=== PATIENT | male | born 1995 | race Caucasian/White ===

== ENCOUNTER 2021-05-12 11:15 | Observation (INO) | payer SELFPAY ==
[2021-05-12] VITALS (23 sets, daily range): BP systolic 114–147; BP diastolic 52–89; PULSE 76–98; RESP 12–89; TEMP 36.4–38; O2SAT 94–100; BMI 20.9; BMI 20.7
--- NOTE | 2021-05-12 11:28 | XR_ITS ---
PROCEDURE: XR KNEE RT 3V CLINICAL INDICATION: nail in knee COMPARISON: No exams were available for comparison FINDINGS: There is a foreign body consistent with a nail in the medial soft tissues of the knee overlying medial femoral condyle region, without definitive bony involvement. Small joint effusion. No acute fracture or dislocation. IMPRESSION: Foreign body consistent with a nail in medial soft tissues of the knee without definitive bony involvement. Small joint effusion. Dictated by: Jaskaran Larson MD 05/12/2021 12:27 Jaskaran Larson MD in [place] 05/12/2021 12:27
--- NOTE | 2021-05-12 11:44 | HMH.EDGENADL ---
ED Disposition Clinical Impression: Foreign body of knee Qualifiers: Encounter type: initial encounter Laterality: right Qualified Code(s): S80.251A - Superficial foreign body, right knee, initial encounter Disposition: Still a Patient Condition on Discharge: Fair - Critical Care Critical Care Time: No Attestation: On 05/12/21, the high probability of a clinically significant, sudden or life threatening deterioration of the following system(s) required my full and direct attention, intervention and personal management. The time I documented below is in addition to time spent performing reported procedures but includes the following listed in this critical care notation. Medical Decision Making - Medical Records Medical records reviewed: Yes: I reviewed the patient's medical records. - Severiano Inquiry Pt receiving controlled substance: No Vital Signs: 05/12/21 11:16 Temperature 98.4 F Temperature Source Oral Pulse Rate [Right Radial] 89 Respiratory Rate 18 Blood Pressure [Right Arm] 129/79 Blood Pressure Mean [Right Arm] 95 Blood Pressure Source [Right Arm] Automatic Cuff Blood Pressure Position [Right Arm] Sitting 02 Sat by Pulse Oximetry 99 Oxygen Delivery Method Room Air Orders (Tests/Meds): ED MEDICATIONS Discontinued Medications Generic Name Dose Route Start Last Admin Trade Name Freq PRN Reason Stop Dose Admin Tetanus/Reduced Diphtheria/Acell Pertussis 0.5 ml 05/12/21 11:29 Tet/Diphth/Pert-Adult 0.5ml Syringe IM 05/12/21 11:30 .ONCE ONE ORDERS Category Date Time Status Knee XR right 3 views [XR knee RT 3V] Stat Exams 05/12/21 11:28 Taken - Radiology Data #1 Image(s): Knee Image Reviewed: Yes I reviewed the patient's radiology image Nail right knee, no clear fracture Medical Decision Narrative: X-rays show nail right knee. Discussed this case with Dr. Lima, on-call for Ortho who will take the patient for washout and further management. General Adult HPI - General Chief complaint: Skin/Abscess/Foreign Body Stated complaint: ao @ 1040 nail in Rt knee Time Seen by Provider: 05/12/21 11:30 Mode of Arrival: Wheelchair Limitations: No Limitations Description of Symptoms (Recalled from ER Triage Doc. by RN): pt presents to ED with a nail in his R knee. Pt reports he was using a nail gun to nail boards together. The head of nail is flush with the knee in R knee. The head of the nail is just above R patella area. No bleeding noted. Pulses positive and equal, pt denies numbness, tingling or decreased sensation. - History of Present Illness HPI narrative: This is a 25-year-old male with no significant past medical history who presents to the emergency department for evaluation of injury to the right knee that occurred just prior to arrival. He was using a nail helper driver when he accidentally placed a nail behind the patella of the right knee. Tetanus not up-to-date. Pain worse with movement. - Related Data Allergies Allergy/AdvReac Type Severity Reaction Status Date / Time No Known Allergies Allergy Verified 05/12/21 11:43 [facility] History - Hepatitis A Screen Drug use history?: No High risk sexual behaviors?: No History of sexually transmitted infection?: No Currently employed?: No Childcare worker?: No Do you have indoor plumbing?: Yes Do you have electricity?: Yes Attestation statement:: This patient has been screened for Hepatitis A risk factors. I have reviewed the patient's past medical history: Yes (Noncontributory) ROS Obtained: Yes All systems reviewed & no additional complaints Physical Exam - General General appearance: alert, in no apparent distress - Head Head exam: atraumatic, normocephalic - Neck Neck exam: Present: normal inspection, full ROM, trachea midline - Respiratory Respiratory exam: Absent: respiratory distress - Cardiovascular Cardiovascular exam: Present: regular rate - Expanded Lower Extremity Exam
--- NOTE | 2021-05-12 12:01 | PC.NURSE ---
BARBY JANSEN speaking with Dr. Clarence wilson enterprise solutions architect
--- NOTE | 2021-05-12 12:20 | HMH.ORTHHP ---
*Admission Date: 05/12/21 *Reason for consult:: Right knee traumatic arthrotomy with nail lodged in distal femur *History of present illness: The patient is a 25-year-old male who was working today and accidentally drove a nail into his right knee. He complains only of right knee pain. He denies any numbness or tingling he has no other current complaints. He states that he last ate at 9:30 AM. [facility] History *Have you ever received a pneumonia vaccine?: No *Have you received a flu vaccine this season?: No - *Social History Smoking Status: Never smoker Alcohol Intake: never *Occupational Status:: other *Travel in the last 8 weeks: None Family Hx:: No significant family history Review of Systems - Review of Systems Review of systems:: pertinent systems reviewed and negative unless documented below Meds Allergies Allergy/AdvReac Type Severity Reaction Status Date / Time No Known Allergies Allergy Verified 05/12/21 11:43 Exam Vital signs and Labs for Last 24 Hours: Temp Pulse Resp BP Pulse Ox 98.4 F 89 19 125/75 100 05/12/21 12:18 05/12/21 12:18 05/12/21 12:18 05/12/21 12:18 05/12/21 12:18 I & O for Last 24 hours: Intake & Output 05/09/21 05/10/21 05/11/21 05/12/21 23:59 23:59 23:59 23:59 Weight 150 lb - Constitutional no acute distress - *Routine HEENT Exam Head: Present: normocephalic Eye: Present: EOMI, PERRL ENT: Present: mucous membranes moist - *Routine Neck Exam Present: supple. Absent: lymphadenopathy - *Routine Respiratory Exam Present: CTA bilaterally - *Routine Cardiovascular Exam Present: RRR - *Routine Abdominal Exam Present: soft, normoactive bowel sounds. Absent: tenderness - *Routine Rectal Exam Rectal:: deferred - *Routine Genitalia Exam Genitalia:: deferred - *Routine Extremities Exam Absent: cyanosis, clubbing, edema - *Routine Skin Exam Present: warm. Absent: rash - *Routine Neurological Exam Present: alert, oriented X3 - Detailed Lower Extremity Exam Comments: Examination of the right knee reveals no obvious deformity. The head of the nail is easily visible on the superior lateral aspect of the knee, just above the patella. Range of motion was not tested secondary to pain. The patient is able to do a straight leg raise. The patient is completely neurovascularly intact distally. Results - Labs Labs: All other labs normal. - Diagnostic results Knee x-ray: image reviewed (X-rays of the right knee were obtained and reviewed. There is a long nail in the knee joint and potentially lodged in the distal femur.) Assessment and Plan (1) Foreign body of knee Status: Acute Qualifiers: Encounter type: initial encounter Laterality: right Qualified Code(s): S80.251A - Superficial foreign body, right knee, initial encounter Category: Medical Code(s): S80.259A - Superficial foreign body, unspecified knee, initial encounter The patient has a traumatic arthrotomy, and technically an open distal femur fracture if this is lodged in the femur. The plan will be to take the patient to the operating room for foreign body removal, open irrigation debridement of the wound tract, and arthroscopic irrigation debridement of the right knee joint.
--- NOTE | 2021-05-12 12:55 | P.PN_ITS ---
[facility] Anesthesia Checklist - Patient Identification Patient Identification: Arm Band - Structural Data Admitted From: Home Planned Operative Procedure/s: Removal of nail with washout and knee arthroscopy Consent for Planned Operative Procedure(s) Verified: Yes - NPO Status Verified Time NPO: 09:30 (Full breakfast) - Airway Assessment C-Spine Mobility Assessed: Yes TMJ Mobility Assessed: Yes Dentition: Good Dentition - Neurological Assessment Level of Consciousness: Awake Hx Seizures: No Numbness or tingling in extremities: No - Anesthesia Plan Anesthesia Risk discussed: Yes Anesthesia Plan: Verified ASA Class: I Anesthesia Type: General [facility] History I have reviewed the patient's past medical history: Yes *Have you ever received a pneumonia vaccine?: No *Have you received a flu vaccine this season?: No Anesthesia experience/problems:: None - *Social History Smoking Status: Never smoker Alcohol Intake: never Substance Use Type: denies use *Occupational Status:: other *Travel in the last 8 weeks: None Family Hx:: No significant family history
[2021-05-12 13:23] LABS: Basophils % 0.3 % (0.1-2.0); Chloride 101 mmol/L (98-107); Eosinophils # 0.3 K/mm3 (0.0-0.4); Eosinophils % 2.6 % (0.1-12.0); Hemoglobin 14.6 g/dL (14.1-18.0); Lymphocytes # 1.3 K/mm3 (0.7-4.5); Lymphocytes % 13.1 % (10-50); Mean Corpuscular HGB Conc 34.7 g/dL (31.8-35.4); Mean Corpuscular Hemoglobin 28.8 pg (27.0-31.2); Mean Corpuscular Volume 83.1 fl (80-94); Mean Platelet Volume 8.9 fl (7.4-10.4); Monocytes # 0.4 K/mm3 (0.1-1.0); Neutrophils # 7.7 K/mm3 (1.8-7.8); Platelet Count 174 K/mm3 (142-424); Red Blood Count 5.05 M/mm3 (4.60-6.20); Red Cell Distribution Width 12.7 % (11.5-17.5); Sodium 137 mmol/L (136-145); White Blood Count 9.6 K/mm3 (4.8-10.8)
[2021-05-12 13:24] LABS: Potassium 3.8 mmoL/L (3.5-5.1)
[2021-05-12 13:26] LABS: Blood Urea Nitrogen 16 mg/dl (9-20); Creatinine Clearance Estimated 137 mL/min (50-200); Estimated Glomerular Filt Rate 119 ml/min (>60); GFR (African American) 144 ML/MIN (>60)
[2021-05-12 13:27] LABS: Anion Gap 14.8 mEq/L (5-15); Calcium 9.1 mg/dl (8.4-10.2); Carbon Dioxide 25 mmol/L (22.0-30.0); Glucose 93 mg/dl (74-100)
--- NOTE | 2021-05-12 15:23 | PC.NURSE ---
pt resting in bed.
--- NOTE | 2021-05-12 16:50 | PC.NURSE ---
DR. Lima from OR at
--- NOTE | 2021-05-12 18:33 | HMH.OPNOTE ---
Date of procedure: 05/12/21 Pre-op Diagnosis:: Right knee traumatic arthrotomy with foreign body Post-op Diagnosis:: Right knee traumatic arthrotomy with foreign body Procedure performed:: Right knee removal foreign body, open and arthroscopic irrigation debridement of right knee. Surgeon:: Yogi Lima MD Anesthesia: LMA Estimated blood loss (mL): 15 Operative findings:: The nail pierced the superior lateral most aspect of the femoral articular cartilage at the patellofemoral articulation. This was in a nonweightbearing portion of the knee and is in the area where an oats graft is usually taken from. The remainder of the articular cartilage was completely normal. The lateral meniscus had some minor fraying along the interim. Medial meniscus was normal. ACL and PCL were normal. The suprapatellar pouch and gutters were without pathology. Operative note:: The patient was seen in the preoperative holding area and marked. Consent was then obtained after the patient understood all risks and benefits of the procedure. The patient was taken to the operating room placed in the supine position on the operating table. The right lower extremity was then prepped and draped in sterile fashion. General anesthesia was smoothly induced. Timeout was then performed. The nail was easily removed using traction with a pair of pliers. The entrance site of the nail was incised and blunt dissection was carried down to the traumatic arthrotomy. There were no foreign bodies noted in this area remaining. There was no devitalized tissue in this area. Standard anterolateral portal was established followed by anteromedial portal. Diagnostic arthroscopy was then performed and the findings of that are dictated above. The knee was then irrigated with 6 L normal saline using the arthroscopy fluid. Inflow was through the anterolateral portal. A shaver was used for outflow via the anteromedial portal. Outflow was also confirmed coming from the entrance point of the nail, thus thoroughly irrigating the entrance tract. Fluid was then removed from the knee as well as arthroscopic instruments. Wounds were then closed with nylon. Sterile dressing was then applied. Tourniquet time (min): 33 Condition: stable Disposition: PACU Complications:: None
--- NOTE | 2021-05-12 18:41 | XR_ITS ---
PROCEDURE INFORMATION: Exam: XR Right Knee Exam date and time: 05/12/2021 6:41 PM Age: 25 years old Clinical indication: Injury or trauma; Other: Post-op foreign body removal; Puncture; Patella or knee; Right; Without foreign body; Injury date: 05/12/2021; Injury details: Patient had foreign body, a nail in his knee; . This is post op after foreign body removed; Prior surgery; Surgery date: Post-operative (0-2 days); Additional info: Status post hardware removal TECHNIQUE: Imaging protocol: XR Right knee. Views: 3 views. Total images: 4 COMPARISON: CR XR KNEE RT 3V 05/12/2021 11:32 AM FINDINGS: Bones/joints: Normal. Soft tissues: The previous metallic nail foreign body in the distal femur has been removed. No retained foreign bodies are identified. Moderate soft tissue air is seen around the distal femoral metaphysis and diaphysis which is new since this morning's comparison radiographs and is presumably postoperative. IMPRESSION: 1. Nail foreign body removed with no retained foreign bodies identified. 2. Soft tissue air around the distal femur is likely postoperative given the rapid appearance over the past 7 hours and interval surgery.
--- NOTE | 2021-05-12 18:42 | HMH.ANESI ---
[facility] Anesthesia Record Part I Intake, IV Amount: 1,000 Estimated blood loss (mL): 15 Urine output (mL): 0 Blood Pressure: 120/52 SaO2: 96 Pulse Rate: 85 Respiratory Rate: 12 Temperature: 97.7 F Patient is:: Drowsy Stable to PACU at:: 18:38
--- NOTE | 2021-05-12 19:24 | PC.NURSE ---
Recieved report from Lo AMIN from PACU regarding patient Sx. Patient had a foreign body in the RLE and was removed. An I/D was also performed. VSS 147/77 HR 85 RR 16 SpO2 98% on 2 L. Patient has IV 20G in the Right AC, Patient given Zofran 4 mg, Torodol 60 mg, Tylenol 1 Gram 100 mcg Fentnyl and Ancef 1 GRAM. This was not charted on the JAN therefore time was not noted. Next ABx to be given is at 0300. Dressing consists of Xeroform, 4X4, Soft Roll and Jerrod Wrap. Dressing Clean, Dry and Intact.
--- NOTE | 2021-05-12 20:42 | PC.NURSE ---
PT ARRIVED TO FLOOR VIA BED FROM OR W/STAFF AT 192
[2021-05-13] VITALS (7 sets, daily range): BP systolic 112–133; BP diastolic 62–80; PULSE 64–82; RESP 15–16; TEMP 36.7–37.2; O2SAT 98–100; BMI 20.9
--- NOTE | 2021-05-13 04:23 | PC.NURSE ---
Pt is a pleasant 25 y/o who is alert and oriented. Pt admitted for foreign body removal as staple gun penetrated RLE. Patient Post VSS. ADministered 1 ABx. Patient did not complain of pain. Patient Dressing RLE Clean dry and intact. Will continue to monitor for any acute changes
--- NOTE | 2021-05-13 08:43 | PC.NURSE ---
Called PT for eval on this pt and left voicemail.
--- NOTE | 2021-05-13 09:19 | HMH.PHAVTE ---
[facility] Pharmacy VTE Monitoring - Patient Demographics Admission date: 05/13/21 Report Date: 05/13/21 Time: :19 Allergies/Adverse Reactions: Patient Allergies No Known Allergies Allergy (Verified 05/12/21 11:43) Height: 1.8 m Weight: 68.067 kg Patient Problems: Current Active Problems Foreign body of knee (Acute) - VTE Risk Labs: VTE Related Lab Results Hgb 14.6 g/dL (14.1-18.0) 05/12/21 12:36 Hct 42.0 % (42.0-52.0) 05/12/21 12:36 Plt Count 174 K/mm3 (142-424) 05/12/21 12:36 BUN 16 mg/dl (9-20) 05/12/21 12:36 Creatinine 0.80 mg/dl (0.66-1.25) 05/12/21 12:36 Estimated Creat Clear 137 mL/min (50-200) 05/12/21 12:36 VTE Score: 1 VTE Risk Level: Very Low Risk - Prophylaxis Types of VTE Prophylaxis: IPCS Knee High (ICDS ORDERED) Location of Applied Device: Bilateral Lower Extremeties
--- NOTE | 2021-05-13 13:49 | HMH.PTEV ---
Physical Therapy Evaluation Rehab PT IP Evaluation Start: 05/12/21 18:41 Freq: ONCE Status: Active Protocol: Document 05/13/21 13:45 [email or web address] (Rec: 05/13/21 13:48 [email or web address] [id number]) Subjective/History History History This is the initial IP PT evaluation for Devon Kent. Pt is a 25 y/o male admitted to [facility] after surgical removal of nail in R knee. Pt reports he was building trusses and hit his leg with the nail gun driving a nail into his knee. Pt had successful surgery to remove nail. Subjective Subjective Pt rpeorts he wants to go home Rehab PT IP Eval Objective Appearance Patient Behavior Appropriate,Cooperative Patient Orientation Name,Birthday,Year,Situation Difficulty following instructions none Speech Pattern Clear Ambulation Patient Able to Ambulate Yes Ambulation Observation IP General Gait Pattern Observation Antalgic Gait Ambulation Distance (feet) 25 Ambulation Assistive Device None Ambulation Ability Supervision/Stand by Balance Ability to Arise Able, uses arms to help Sitting Balance Steady, safe Standing Balance Narrow stance w/o support Dynamic Sitting Balance Ability Normal Dynamic Standing Balance Ability Good Transfers Bed Transfer Ability Independent Chair Transfer Ability Independent Sit to Stand Bed Transfer Ability Independent Sit to Stand Chair Transfer Ability Independent Rehab PT IP prob,goals,plan Problems Date of Evaluation: 05/13/21 Rehab Potential Rehab Potential Innapropriate for Skilled Therapy Discharge Plan PT Discharge Plan Pt safe to return home w/ family once medically stable. No skilled therapy needed for IP at this time. G -code Required No Eval Complexity Eval Charge Codes 27744 - Low Complexity PHYSICIAN CERTIFICATION: I certify the specified therapy services for Devon Kent are required, authorized, and reviewed every 30 days.
--- NOTE | 2021-05-13 15:23 | PC.NURSE ---
e is aox4, able to make needs known to staff, has been up to chair for most of shift, shower with linen change today, has denied pain thus far, no requests for pain medication this shift. tolerating regular diet, dsg in place to rle c/d/i, sensation and movement intact to rle, pedal pulses 2+ bilaterally, vss and pt remains afebrile.
--- NOTE | 2021-05-13 17:22 | HMH.ORTHPN ---
Subjective Date: 05/13/21 Time: 17:22 Principal diagnosis: S/P right knee foreign body removal with irrigation and debridement Interval history: Patient has no current complaints. His pain is well controlled and has not requested pain medicine at all today. He denies any numbness or tingling. Exam: Examination of the right lower extremity reveals dressing with no drainage and is intact. He has good range of motion of the knee. Quad strength is intact. Sensation is intact in all distributions distally. He has 2+ dorsalis pedis and posterior tibialis pulses. Assessment: Postop day 1 status post foreign body removal with irrigation debridement of the right knee. Plan: Patient will be discharged home today. He will be sent home with 1 week prescription of Keflex. He can weight-bear as tolerated. Perform range of motion as tolerated. He was advised that he may shower with the incisions uncovered beginning on Saturday. PN: Obj Ex Vital signs: Temp Pulse Resp BP Pulse Ox 98.2 F 80 16 121/64 99 05/13/21 15:04 05/13/21 15:04 05/13/21 15:04 05/13/21 15:04 05/13/21 15:04 Progress Note: A&P (1) Foreign body of knee Status: Acute
--- NOTE | 2021-05-13 17:32 | HMH.DCSUM ---
General - General Admission date:: 05/12/21 Discharge date: 05/13/21 HPI HPI: The patient was admitted yesterday with a wojciech nail lodged in his knee. He was taken to surgery and this was removed. He underwent irrigation debridement as well and received 24 hours of IV antibiotics on the floor. He was deemed stable enough for discharge home today. Hospital Course Hospital Course: See HPI Objective Vital signs: Temp Pulse Resp BP Pulse Ox 98.2 F 80 16 121/64 99 05/13/21 15:04 05/13/21 15:04 05/13/21 15:04 05/13/21 15:04 05/13/21 15:04 Narrative: RLE: Dressing C/D/I. SILT SPN/DPN/T. 2+ pedal pulses Results Completed studies during hospitalization [Text1]: N/A DS: Diagnosis - Discharge Diagnosis (1) Foreign body of knee Start date: 05/12/21 Status: Acute Discharge Plan - Patient Discharge Instructions ACTIVITY: Ambulate as tolerated DIET: continue same diet Additional Instructions: OK to shower beginning on Saturday. WBAT. ROM as tolerated. - Follow up Plan Follow up with: Ney Alex MD [Staff Physician] - 2 weeks Disposition: Home, Self-Care Condition at discharge:: Stable Home Medications: Home Medications Medication Instructions Recorded Confirmed Type cephALEXin [Keflex 750mg Cap] 500 mg PO QID #28 cap 05/13/21 Rx Prescriptions/Medication Reconciliation: New cephALEXin [Keflex 750mg Cap] 500 mg PO QID #28 cap - Problem Reconciliation Problems Reviewed?: Yes
--- NOTE | 2021-05-15 14:06 | HMH.ANESII ---
[facility] Anesthesia Record Part II Discharge Time: 19:18 Destination: Medical Surgical Department PACU nurse assessment reviewed?: Yes Patient Condition:: Good Anesthesia Complications:: None Swallowing reflex intact?: Yes Cyanosis?: No Blood Pressure: 147/77 Pulse Rate: 85 Temperature: 97.7 F Mental Status: Alert & Oriented Pain level:: 0 Nausea and/or vomitting:: None Intake, IV Amount: 0
[2021-05-15 14:07] VITALS: BP 147/77; PULSE 85; TEMP 36.5
== END 2021-05-13 18:35 | disposition home or self-care (01) ==
LOC: ER 18:27 → SDC 18:27 → 2ND 20:33
PROVIDERS: Admitting Provider Orthopaedic Surgery Sports Medicine; Emergency Provider Emergency Medicine; PCP Family Medicine; Visit Provider Orthopaedic Surgery Sports Medicine
PROC: (CPT 29870; principal; 2021-05-12 17:30)
DX: S81.041A Puncture wound with foreign body, right knee, initial encounter (principal); W45.0XXA Nail entering through skin, initial encounter; W29.4XXA Contact with nail gun, initial encounter; Y93.H3 Activity, building and construction; Y99.0 Civilian activity done for income or pay
CPT/HCPCS: 27331; 73562; 80048; 85025; 90471; 90715; 96365; 96366; 97161; 99284; G0378; J0131; J2405